=== PATIENT | male | born 1980 | race Caucasian/White ===

== ENCOUNTER 2016-08-12 00:09 | Emergency (ER) | payer BC ==
[2016-08-12 00:56] LABS: HEMOGLOBIN 15.9 gm/dl (14.0-17.5); RED BLOOD COUNT 5.04 M/UL (4.20-5.50); WHITE BLOOD COUNT 11.5 K/UL (4.5-11.0)
[2016-08-12 01:11] LABS: BUN/CREATININE RATIO 12 (0-10)
== END 2016-08-12 06:35 | disposition home or self-care (01) ==
LOC: ER1 00:09
PROVIDERS: Physician Assistant Medical
DX: J02.9 Acute pharyngitis, unspecified (principal); I10 Essential (primary) hypertension; K21.9 Gastro-esophageal reflux disease without esophagitis; Z79.899 Other long term (current) drug therapy
CPT/HCPCS: 36415; 36600; 70491; 71020; 80053; 81001; 82803; 83605; 85025; 86140; 87040; 87081; 87086; 87880; 96361; 96372; 96374; 99284; J0561; J1885; J7050; Q9962